=== PATIENT | female | born 1950 | race Caucasian/White ===

== ENCOUNTER 2023-10-11 08:16 | Day surgery (SDC) | payer MEDICARE ==
[2023-10-10 11:13] VITALS: BMI 29.7
[2023-10-11 09:29] LABS: #Basophils 0.1 thou/uL (0.0-0.2); #Eosinphils 0.4 thou/uL (0.0-0.7); #Monocytes 0.7 thou/uL (0.11-0.59); #Neutrophils 4.4 thou/uL (1.40-6.50); %Basophils 0.7 % (0.0-1.0); %Eosinophils 5.2 % (0.0-10.0); %Lymphocytes 26.3 % (21.0-51.0); %Monocytes 9.3 % (0.0-10.0); %Neutrophils 58.2 % (42.0-75.0); Hematocrit 37.8 % (36.0-47.0); Hemoglobin 12.7 g/dL (12.0-16.0); Mean Corpuscular HGB CONC 33.6 g/dL (32.0-36.0); Mean Corpuscular Hemoglobin 29.9 pg (27.0-31.0); Mean Corpuscular Volume 88.9 fl (78.0-98.0); Mean Platelet Volume 8.8 fL (7.4-10.4); Platelet Count 258 10x3/uL (130-400); RBC Distribution Width 12.7 % (11.5-14.5); Red Blood Cell (RBC) Count 4.25 mill/uL (4.20-5.40); White Blood Cell (WBC) Count 7.5 10x3/uL (4.8-10.8)
[2023-10-11 09:47] LABS: Anion Gap 14 mmol/L (10-20); BUN (Urea Nitrogen) 15 mg/dL (9.8-20.1); Calc. Creatinine Clearance 93 mL/min (70-130); Calcium 9.5 mg/dL (7.8-10.44); Carbon Dioxide 26 mmol/L (23-31); Chloride 104 mmol/L (98-107); Estimated GFR 91; Glucose 101 mg/dL (83-110); Potassium 3.8 mmol/L (3.5-5.1); Sodium 140 mmol/L (136-145)
[2023-10-11] MEDS ORDERED: Sodium Chloride 0.9% 100 ML ONE (09:50)
[2023-10-11] MEDS ORDERED: EPINEPHrine 1 MG/ML VIAL ONE (09:50)
[2023-10-11] MEDS ORDERED: CEFAZOLIN 2 GM VIAL ONE (09:50)
[2023-10-11] MEDS ORDERED: Bupivacaine 0.25% HCL 30 ML VIAL ONE (09:50)
[2023-10-11] MEDS ORDERED: PROPOFOL 20 ML ONE (09:51)
[2023-10-11] MEDS ORDERED: fentaNYL PF 100 MCG/2 ML SYRINGE ONE (09:52)
[2023-10-11] MEDS ORDERED: Lidocaine 1% PF 5 ML VIAL ONE ×2 (09:53→10:10)
[2023-10-11] MEDS ORDERED: Ondansetron PF 4 MG/2 ML Vial ONE ×2 (10:10→10:46)
[2023-10-11] MEDS ORDERED: PROPOFOL 200 MG/20 ML VIAL ONE (10:10)
[2023-10-11] MEDS ORDERED: Dexamethasone 20 MG/5 ML VIAL ONE (10:10)
[2023-10-11] MEDS ORDERED: Dexamethasone 4 mg/ml Vial ONE (10:47)
== END 2023-10-11 12:30 | disposition home or self-care (01) ==
LOC: SDC 08:16
PROVIDERS: ATTEND Orthopaedic Surgery
PROC: 01N50ZZ Release Median Nerve, Open Approach (ICD-10-PCS; principal; 2023-10-11)
DX: G56.03 Carpal tunnel syndrome, bilateral upper limbs (principal); I11.9 Hypertensive heart disease without heart failure
CPT/HCPCS: 64721; 80048; 85025; 93005; J0171; 36415; 93010; J1100; J2405; J2704; J3490; S0020